=== PATIENT | female | born 2000 | race Caucasian/White ===

== ENCOUNTER 2023-10-22 09:43 | Outpatient (CLI) | payer BC ==
[2023-10-22] VITALS (21 sets, daily range): BP systolic 106–131; BP diastolic 57–88; PULSE 56–90
== END 2023-10-22 23:59 | disposition home or self-care (01) ==
LOC: CARD DIAG 09:43
PROVIDERS: ATTEND Internal Medicine Interventional Cardiology
DX: R42 Dizziness and giddiness (principal)
CPT/HCPCS: 93660